=== PATIENT | male | born 1965 | race Hispanic/Latino ===

== ENCOUNTER 2017-04-17 17:06 | Emergency (ER) | payer OTHER ==
[~2017-04-17] VITALS: Ht 167.6 cm; Wt 75.0 kg
[2017-04-17 17:11] VITALS: BP 148/88; PULSE 83; RESP 16; O2SAT 99
--- NOTE | 2017-04-17 17:57 | DRSVH ---
PROCEDURE: X-RAY THORACIC SPINE, 2 VIEWS INDICATIONS: Back Pain TECHNIQUE: 2 views of the thoracic spine were acquired. COMPARISON: None. FINDINGS: Bones: No fractures or dislocations. No suspicious bony lesions. Visualized ribs are intact. Multil evel endplate osteophytes within the thoracic spine. Soft tissues: No paravertebral stripe thickening. IMPRESSION: Degenerative disc disease. No acute fracture. No osseous lesion. If clinical suspicion an d/or symptoms persist, further assessment with repeat plainfilms, or advanced imaging (e.g., CT, MRI, or bone scan) may be helpful for further assessment. Dictated by: Daiana Miller M.D. on 04/17/2017 at 17:55 Approved by: Daiana Miller M.D. on 04/17/2017 at 17:55
--- NOTE | 2017-04-17 17:58 | DRSVH ---
PROCEDURE: X-RAY LUMBAR SPINE, 2 OR 3 VIEW INDICATIONS: Back Pain TECHNIQUE: 3 views of the lumbar spine were acquired. COMPARISON: None. FINDINGS: Bones: 5 [id number] vertebrae are present. Transitional element at S1 is present. Multilevel en dplate osteophytes are present. Possible L5-S1 pars interarticularis defect is present. Multilevel fa cet hypertrophy. There is normal bony alignment. No vertebral body compression fractures. No suspic ious bony lesions. Soft tissues: Overlying bowel gas pattern is normal. No suspicious soft tissue calcifications. IMPRESSION: 1. Multilevel degenerative disc and facet disease. 2. Possible L5-S1 pars interarticularis defect. 3. No acute fracture. No osseous lesion. If clinical suspicion and/or symptoms persist, further asses sment with repeat plainfilms, or advanced imaging (e.g., CT, MRI, or bone scan) may be helpful for fu rther assessment. Dictated by: Daiana Miller M.D. on 04/17/2017 at 17:55 Approved by: Daiana Miller M.D. on 04/17/2017 at 17:56
[2017-04-17 21:15] VITALS: BP 142/82; PULSE 80; RESP 16; O2SAT 100
--- NOTE | 2017-04-17 21:19 | ED.REPORT ---
HPI-Back Pain 40 and Over Date of Service April 17, 2017 ED Provider: Tao Momin MD Pt is a 51 year old male presenting to the ED complaining of lower back pain radiating down his left leg onset after heavy lifting at work yesterday, worsened today. Associated symptoms include numbness in his legs and back and decreased ROM. He denies back pain like this before or bowel or bladder incontinence. 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 Nursing Notes Stated Complaint: BACK PAIN Chief Complaint: Back Pain or Injury Nursing Notes Reviewed: Yes Allergies: Uncoded Allergies: PENICILLIN (Allergy, Unknown, 04/17/17) Scheduled Prednisone (PredniSONE) 20 Mg Tablet 20 MG PO 04/17/17 Scheduled PRN Ibuprofen (Ibuprofen) 600 Mg Tablet 600 MG PO TID PRN PRN For Pain General Time Seen by MD: 21:08 Chief Complaint Back pain Hx Obtained From: Patient Arrived By: Walk-in Sudden in Onset?: Yes Onset Occurred: Yesterday Symptom Duration: Since onset Caused by: Lifting Quality: Painful Radiation: : Right leg above knee Severity: Current: Moderate Severity: Maximum: Severe Recent Healthcare: No recent doctor visit, No recent hospitalization Similar Sx Previous: Yes Past Medical History Past Medical History chronic back pain Past Surgical History denies Smoking History Unknown if Ever Smoker Ambulatory Status Independent Review of Systems Male: Denies Incontinence Musculoskeletal: Reports: Back pain, Lumbar pain Neurologic: Reports: Numbness Complete sys rev & neg: except as marked. Physical Exam Initial Vital Signs Vital Signs (First) Date Time Temp Pulse Resp B/P Pulse Ox O2 Delivery O2 Flow Rate FiO2 04/17/17 17:11 36.8 83 16 148/88 99 Room Air Initial VS: Reviewed, Vital signs normal Head / Eyes: Atraumatic, Normocephalic, PERRL ENT: Mucous membranes moist, Conjunctiva normal, No scleral icterus Extremities: Vascular intact, Neuro intact, No swelling, No tenderness Skin: Warm, Dry, No cyanosis Psychiatric: Mood/affect normal, Behavior normal, Normal thought content General/Constitutional: Awake, Alert, No acute distress, Well appearing Respiratory / Chest: No respiratory distress Abdomen: Soft, No distention Back: Atraumatic Positive straight leg raise, right side Neurologic: Oriented X3, Speech NL, No motor deficits, No sensory deficits, Reflexes equal bilat Interpretation & Diagnostics X-Ray Interpretation Xray Interpretation: XRAY THORACIC SPINE: IMPRESSION: Degenerative disc disease. No acute fracture. No osseous lesion. If clinical suspicion and/or symptoms persist, further assessment with repeat plainfilms, or advanced imaging (e.g., CT, MRI, or bone scan) may be helpful for further assessment. Dictated by: Daiana Miller M.D. on 04/17/2017 at 17:55 LUMBAR SPINE XRAY: IMPRESSION: 1. Multilevel degenerative disc and facet disease. 2. Possible L5-S1 pars interarticularis defect. 3. No acute fracture. No osseous lesion. If clinical suspicion and/or symptoms persist, further assessment with repeat plainfilms, or advanced imaging (e.g., CT, MRI, or bone scan) may be helpful for further assessment. Dictated by: Daiana Miller M.D. on 04/17/2017 at 17:55 Interpretation / Wet Read by: Interpret - Radiologist Re-Eval/Medical Decision Med Decision/Clinical Course 51-year-old male who does heavy lifting at work. He has low back symptoms with right-sided sciatica. X-rays ordered by nurse initiated order protocols of the thoracic and lumbar spine showed degenerative changes but no acute fracture dislocation. There is no evidence of serious neurologic deficit. He was given a short course of steroids and pain medications. He will follow-up with his primary doctor. Re-Evaluation/Progress : Time of Eval: 21:38 Patient Status: Condition improved Re-Evaluation/Progress Note: Discussed plan for discharge. Pt understands and agrees with plan. All pt questions addressed. Counseled Regarding: Diagnosis, Lab results, Need for follow-up, When/why to return to ED Discharge & Departure Impression: Primary Impression: Lumbosacral strain Encounter type: initial encounter Qualified Code: S39.012A - Strain of muscle, fascia and tendon of lower back, initial encounter Additional Impression: Sciatica of right side Disposition: Home Discharge Condition All VS Reviewed: Yes Condition: Stable Patient Instructions: Sciatica (ED) Additional Instructions: The x-rays show some arthritis but no acute fracture or dislocation. It appears that you have muscle strain and possibly a pinched right sciatic nerve. Recommend decreased activity initially, 3 days off work and then light duty for 2 weeks. Prednisone 20 mg by mouth 3 times a day for 5 days, #1 given in the emergency room and #15 prescription written. Ibuprofen 600 mg 3 times daily , #30 prescription written. See your regular doctor at [facility] if you have persistent problems. You may need an MRI if your symptoms persist. Referrals: Verito Rajput MD (PCP) Scribe Attestation Portions of this note were transcribed by Aarti Marion. I, Dr. Momin personally performed the history, physical exam and medical decision-making; I reviewed and confirmed the accuracy of the information in the transcribed note. Signed by: Calvin Garay, 04/17/2017 at 2138. copies to: Verito Rajput MD, Tao Cordero MD April 17, 2017 21:19 AARTI MARION April 17, 2017 21:23
[2017-04-17] MEDS ORDERED: IBUP-1827 PO (21:21)
[2017-04-17] MEDS ORDERED: PRE20 PO (21:21)
[2017-04-17] MEDS ORDERED: predniSONE 20 mg Tablet PO ONE (21:25)
[2017-04-17 21:37] VITALS: BP 142/82; PULSE 80; RESP 16; O2SAT 100
== END 2017-04-17 21:38 | disposition home or self-care (01) ==
LOC: SED 17:10
DX: S39.012A Strain of muscle, fascia and tendon of lower back, initial encounter (principal); M54.31 Sciatica, right side; X50.0XXA Overexertion from strenuous movement or load, initial encounter; Y93.89 Activity, other specified; Y92.59 Other trade areas as the place of occurrence of the external cause; Y99.0 Civilian activity done for income or pay; Z88.0 Allergy status to penicillin